=== PATIENT | male | born 1970 | race Caucasian/White ===

== ENCOUNTER 2019-12-23 19:49 | Emergency (ER) | payer MEDICAID, SELFPAY ==
[~2019-12-23] VITALS: Ht 160 cm; Wt 81.6 kg
[2019-12-23 19:53] VITALS: Ht 160 cm; Wt 81.6 kg
[2019-12-23 22:01] VITALS: BP 133/65
== END 2019-12-23 22:01 | disposition home or self-care (01) ==
LOC: ED 19:49
DX: B34.9 Viral infection, unspecified (principal); Z20.828 Contact with and (suspected) exposure to other viral communicable diseases
CPT/HCPCS: 87804; Q0092